=== PATIENT | female | born 1995 | race Asian ===

== ENCOUNTER 2023-01-25 04:56 | Emergency (ER) | payer OTHER ==
[2023-01-25] MEDS ORDERED: KETOROLAC 30 MG/ML VIAL IM STA (06:09)
[2023-01-25] MEDS ORDERED: CHERRY SYRUP 10 ML UDC PO ONE (06:09)
[2023-01-25] MEDS ORDERED: DEXAMETHASONE 10 MG/ML VIAL PO STA (06:09)
--- NOTE | 2023-01-25 06:12 | ED Physician Documentation ---
PD HPI BACK PAIN - Stated complaint Stated Complaint: BACK INJ - Chief complaint Chief Complaint: Trauma Ch/Bk - History obtained from History obtained from: Patient, Family, EMS - History of Present Illness Timing - onset: Last night Timing - duration: Hours Timing - details: Abrupt onset, Still present Location: Lower, Right Quality: Pain, Spasm, Sharp Associated symptoms: No: Fever, Weakness, Numbness, Incontinent of urine, Unable to urinate, Hematuria, Incontinent of stool Improves with: Rest, Position Worsened by: Movement, Lifting, Twisting Contributing factors: Lifting, Other (The patient has been moving her home.) Similar symptoms before: Has not had sx before Recently seen: Not recently seen - Additional information Additional information: Previously well 27-year-old John Manning has been moving her house with her spouse and last night she bent over to get into a drawer and had the sudden onset of severe pain and fell forward. She felt a snap in her back. She is having difficulty moving around and has some pain shooting down her right leg. She denies any numbness or tingling she denies any saddle anesthesia she denies any difficulty with bowel or bladder. She has not had episodes of back pain previously. Review of Systems Constitutional: denies: Fever Eyes: denies: Decreased vision Ears: denies: Ear pain Nose: denies: Rhinorrhea / runny nose, Congestion Throat: denies: Sore throat Cardiac: denies: Chest pain / pressure Respiratory: denies: Dyspnea, Cough GI: denies: Abdominal Pain, Nausea, Vomiting : denies: Dysuria, Frequency Skin: denies: Rash Musculoskeletal: reports: Back pain. denies: Neck pain, Extremity pain Neurologic: denies: Generalized weakness, Focal weakness, Numbness PD PAST MEDICAL HISTORY - Present Medications Home Medications: Ambulatory Orders Medication Instructions Recorded Confirmed Cyclobenzaprine [Flexeril] 10 mg PO TID PRN #20 tablet 01/25/23 HYDROcod/ACETAM 5/325 [Sycamore 5/325] 1 - 2 tablet PO Q6H PRN #14 tablet 01/25/23 - Allergies Allergies/Adverse Reactions: Allergies Allergy/AdvReac Type Severity Reaction Status Date / Time No Known Drug Allergies Allergy Verified 01/25/23 05:16 PD ED PE NORMAL - Vitals Vital signs reviewed: Yes (normal ) - General General: Alert and oriented X 3, No acute distress, Well developed/nourished, Other (appears comfortable laying still. Unable to sit up even with assistance. ) - HEENT HEENT: Atraumatic, PERRL, EOMI - Neck Neck: Supple, no meningeal sign, No bony TTP - Respiratory Respiratory: No respiratory distress - Back Back: No CVA TTP, No spinal TTP, Other (mild tenderness extending into the sciatic notch. ) - Derm Derm: Normal color, Warm and dry, No rash - Extremities Extremities: No deformity, No edema - Neuro Neuro: Alert and oriented X 3, client partner 2-12 intact, No motor deficit, No sensory deficit, Normal speech Eye Opening: Spontaneous Motor: Obeys Commands Verbal: Oriented GCS Score: 15 - Psych Psych: Normal mood, Normal affect Results - Vitals Vitals: Vital Signs - 24 hr 01/25/23 01/25/23 05:13 07:42 Temperature 36.0 C L Heart Rate 81 57 L Respiratory 16 18 Rate Blood Pressure 101/66 105/67 O2 Saturation 98 100 Oxygen O2 Source Room air PD Medical Decision Making - ED course Complexity details: reviewed results, re-evaluated patient, considered dif ferential, d/w patient, d/w family ED course: 27-year-old female with back spasm from overuse does not have evidence of cauda equina or hard neurologic findings. She is treated in the ED with toradal and dexamethasone with improvement but she still is unable to sit up in bed. She is administered IM dilaudid and TL zofran. Departure - Departure Disposition: 01 Home, Self Care Clinical Impression: Acute lumbar myofascial strain Qualifiers: Encounter type: initial encounter Qualified Code(s): S39.012A - Strain of muscle, fascia and tendon of lower back, initial encounter Condition: Stable Instructions: ED Sprain Strain Lumbar, ED Spasm Muscle Follow-Up: [facility] [Provider Group] Prescriptions: Cyclobenzaprine [Flexeril] 10 mg PO TID PRN #20 tablet PRN Reason: Spasms HYDROcod/ACETAM 5/325 [Sycamore 5/325] 1 - 2 tablet PO Q6H PRN #14 tablet PRN Reason: Pain Comments: John, today it looks like you strained your back and this will usually take about 2 to 5 days to recover. The recommendation is to use ice and stretch and I have provided some pain medication and muscle relaxant that has been E scribed to the [facility] in [place]. Our expectation with treatment is resolution of symptoms within 2 to 5 days. Forms: Activity restrictions
[2023-01-25] MEDS ORDERED: ONDANSETRON ODT 4 MG TABLET TL STA (07:28)
[2023-01-25] MEDS ORDERED: HYDROmorphone 1 MG/ML CARPUJECT IM STA (07:28)
[2023-01-25 07:43] VITALS: BP 105/67
== END 2023-01-25 08:05 | disposition home or self-care (01) ==
LOC: ED 04:56
DX: S39.012A Strain of muscle, fascia and tendon of lower back, initial encounter (principal); X50.0XXA Overexertion from strenuous movement or load, initial encounter
CPT/HCPCS: 96372; 99283; A9270; J1170; Q0162